=== PATIENT | male | born 1955 | race Caucasian/White ===

== ENCOUNTER 2016-12-27 09:59 | Emergency (ER) | payer OTHER ==
[~2016-12-27] VITALS: Ht 175.3 cm; Wt 73.0 kg
[~2016-12-27 09:59] MED LIST: IBUP800T25 PO
[2016-12-27 10:00] VITALS: Ht 175.3 cm; Wt 73.0 kg
[2016-12-27] MEDS ORDERED: CEPH-443 PO (10:53)
[2016-12-27] MEDS ORDERED: IBUP-1542 PO (10:53)
--- NOTE | 2016-12-27 10:58 | ERD ---
ER Documentation Chief Complaint Date/Time DATE: 12/27/16 TIME: 10:55 Chief Complaint 2nd day wound check HPI Patient returns for recheck of extensive lacerations from glass after suturing 2 days ago. He has has no pain there is no discharge from the wounds. ROS All systems reviewed and are negative except as per history of present illness. Medications Home Meds Active Scripts Ibuprofen* (Motrin*) 600 Mg Tab, 600 MG PO Q6H Y for PAIN, #30 TAB Prov:YANE GRUBBS DO 12/27/16 Cephalexin* (Keflex*) 500 Mg Capsule, 500 MG PO TID for 7 Days, CAP Prov:YANE GRUBBS DO 12/27/16 Ibuprofen* (Motrin*) 800 Mg Tab, 800 MG PO Q6, #30 TAB Prov:PARISH BURNS PA-C 12/25/16 PMhx/Soc Medical and Surgical Hx: pt denies Medical Hx, pt denies Surgical Hx Hx Alcohol Use: No Hx Substance Use: No Hx Tobacco Use: No Smoking Status: Never smoker Physical Exam Vitals Vital Signs Date Time Temp Pulse Resp B/P Pulse Ox O2 Delivery O2 Flow Rate FiO2 12/27/16 10:00 98.0 75 18 128/73 99 Physical Exam Const: [] No distress Ext: No cyanosis, or edema, 17 sutures to do different lacerations on back of hand and distal forearm dorsally are clean dry and intact, no erythema or signs of infection. Patient has full range of motion of his wrist and fingers. Good capillary refill Procedures/MDM Extensive lacerations to hands. Repair is very good no signs of infection currently. The nature lacerations I would like to cover the patient with Keflex. Also giving him all [facility]-up in case he has any complications. Otherwise he can follow-up with primary care doctor in 2 3 days and return to ER for any issues. Departure Diagnosis: Primary Impression: Encounter for wound re-check Condition: Stable Patient Instructions: Wound Check, Lac F/U (No Infection) Referrals: [facility] Additional Instructions: Llame al doctor MAANA y jaclyn aarti DONTAE PARA DENTRO DE 2-3 MUÑOZ.Dgale a la secretaria que nosotros le instruimos hacer esta dontae.Avise o llame si dang condicin se empeora antes de la dontae. Si tiene problemas puede blake a la clinica de mano en [place]. Regresa aqui si peor o no mejor. YANE GRUBBS DO Dec 27, 2016 10:58
== END 2016-12-27 11:05 | disposition home or self-care (01) ==
LOC: FTE 09:59
DX: Z48.01 Encounter for change or removal of surgical wound dressing (principal)
CPT/HCPCS: 99283